=== PATIENT | male | born 1955 | race Caucasian/White ===

== ENCOUNTER 2017-07-26 13:55 | Outpatient (RCR) | payer BC, SELFPAY ==
[2017-07-26 14:33] VITALS: BP 156/71; PULSE 60; RESP 18; TEMP 36.8; O2SAT 98; BMI 36.6
[2017-07-26 14:33] LABS: Absolute Lymphocyte Count 1.13 X10^3/ul (0.83-4.51); Absolute Neutrophil Count 2.8 X10^3/uL (2.0-7.7); Basophil# 0.02 X10^3/uL; Basophil% 0.4 % (0-1); Eosinophil# 0.11 X10^3/uL; Eosinophils% 2.4 % (0-5); Hematocrit 35.8 % (40-54); Hemoglobin 12.3 g/dl (13.0-16.5); Lymphocyte # 1.13 X10^3/ul (4.0); Lymphocyte % 24.8 % (19-41); Mean Corp Hgb Conc 34.4 g/gl (32-36); Mean Corpuscular Hgb 31.1 pg (27.0-32.0); Mean Corpuscular Volume 90.6 fL (80-94); Mean Platelet Vol. 9.5 fl (6.2-12.0); Monocyte# 0.44 X10^3/uL; Monocyte% 9.6 % (0-10); Neutrophil # 2.84 X10^3/uL (2.7-7.7); Neutrophil % 62.4 % (47-70); Platelet Count 121 K/mm3 (150-450); RBC Distribution Width CV 12.3 % (11.6-14.6); RBC Distribution Width SD 39.9 fl (35.1-43.9); Red Blood Count 3.95 M/mm3 (4.6-6.2); White Blood Count 4.6 K/mm3 (4.4-11.0)
[2017-07-26 14:34] LABS: POSITIVE COUNT NO; POSITIVE DIFFERENTIAL NO; POSITIVE MORPHOLOGY NO
--- NOTE | 2017-07-26 15:01 | WMO.OV_ITS ---
Subjective - Date of Service Date of Service:: 07/26/17 - Chief Complaint F/u for chronic ITP. - History of Present Illness [id number].[id number].[email or web address] was diagnosed with Chronic ITP in 2003. He has never required therapy. Comes in for follow up. He feels well, denies bleeding. - Past Medical/Social History Social History Smoking Status Never smoker Review of Systems Constitutional:: Denies: Fever, Sweats, Weight loss, Appetite change, Chills Cardiovascular:: Denies: Chest pain, Palpitations, Dyspnea on exertion, Orthopnea, PND, Shortness of breath Respiratory: Denies: Cough, Hemoptysis, Shortness of Breath, Wheezing Gastrointestinal:: Denies: Abdominal pain, Nausea, Vomiting, Diarrhea, Constipation, Hematochezia Genitourinary: Denies: Dysuria, Hematuria, 15, Flank pain Musculoskeletal:: Denies: Back pain, Myalgia, Arthralgia Skin: Denies: Rash, Skin Changes, Wounds Neurological:: Denies: Headache, Dizziness, Visual changes, Tinnitus, Hearing loss Psychiatric: Denies: Anxiety, Depression, Homicidal Ideations, Suicidal Ideations Vital Signs Height 5 ft 11 in Weight: 119.295 kg Weight in Pounds 263.0 lbs Pulse Ox 98 Temperature 98.3 F Pulse Rate 60 Respiratory Rate 18 Blood Pressure 156/71 Blood Pressure Position Sitting - Physical Exam General: Alert, Oriented x3, No apparent distress HEENT: Atraumatic, PERRLA, EOMI, Normocephalic Oropharynx:: Dry mucosa Neck:: Supple, Trachea midline. Negative for: JVD, bilateral Cardiac:: Regular rate, Regular rhythm, Normal S1, Normal S2. Negative for: Murmur Lungs: Clear to auscultation, Excusion symmetrical. Negative for: Rhonchi, Wheezes Abdomen:: Bowel sounds x 4, Soft, Non-tender, Non-distended. Negative for: Hepatosplenomegaly Extremities:: Negative for: Cyanosis, Edema Neurological: Neuro grossly intact Skin:: Negative for: Lesions, Rash, Petechiae, Ecchymosis Psychiatric:: Appropriate affect, Euthymic Lymphatics:: Negative for: Cervical lymphadenopathy, Supraclavicular lymphadenopathy, Axillary lymphadenopathy Laboratory Data: Laboratory Tests 3 07/26/17 Range/Units 14:13 WBC 4.6 (4.4-11.0) K/mm3 RBC 3.95 L (4.6-6.2) M/mm3 Hgb 12.3 L (13.0-16.5) g/dl Hct 35.8 L (40-54) % MCV 90.6 (80-94) fL MCH 31.1 (27.0-32.0) pg MCHC 34.4 (32-36) g/gl RDW 12.3 (11.6-14.6) % RDW Differential 39.9 (35.1-43.9) fl Plt Count 121 L (150-450) K/mm3 MPV 9.5 (6.2-12.0) fl Immature Gran % (Auto) 0.400 (0.0-0.9) % Neut % (Auto) 62.4 (47-70) % Lymph % (Auto) 24.8 (19-41) % [place] % (Auto) 9.6 (0-10) % Eos % (Auto) 2.4 (0-5) % Baso % (Auto) 0.4 (0-1) % Absolute Neuts (auto) 2.8 (2.0-7.7) X10^3/uL Absolute Lymphs (auto) 1.13 (0.83-4.51) X10^3/ul Total Counted Not Reportable Assessment and Plan Chronic ITP. Clinically stable. Plt 121 today. Plan is to continue observation. Since he is stable, he will follow up PCP and call if new problems arise. RTC prn. Medications: Prescriptions This Visit Medication Instructions Recorded Aliskiren Hemifumarate [Tekturna] 150 mg PO DAILY 07/22/17 Allopurinol [Zyloprim] 100 mg PO DAILY 07/22/17 Atorvastatin Calcium [Lipitor] 10 mg PO DAILY 07/22/17 Doxazosin Mesylate [Cardura] 8 mg PO DAILY 07/22/17 Enalapril Maleate [Vasotec] 20 mg PO DAILY 07/22/17 Multivitamin [Multiple Vitamins] 1 each PO DAILY 07/22/17 Valsartan [Diovan] 160 mg PO DAILY 07/22/17 Verapamil HCl [Verelan] 360 mg PO DAILY 07/22/17 Primary Care Provider: Westley Bryan Referring Provider: - Problem List (1) Chronic ITP (idiopathic thrombocytopenia) Status: Chronic
[2017-07-26 22:14] LABS: Xtra Tube EP Lab EXTRA TUBE
== END 2017-08-26 16:20 | disposition home or self-care (01) ==
LOC: ONC 13:55
PROVIDERS: Family Provider Family Medicine; PCP Family Medicine; Visit Provider Internal Medicine Medical Oncology
DX: D69.3 Immune thrombocytopenic purpura (principal)
CPT/HCPCS: 36415; 85025

== ENCOUNTER → 2017-09-06 16:27 | Outpatient (CLI) | payer BC, SELFPAY ==
[2017-09-06 17:25] LABS: Albumin, Serum 3.9 g/dL (3.2-5.0); BUN 23 mg/dL (7-18); BUN/Creat Ratio 17.4 RATIO (10-20); Calcium,Total 8.9 mg/dL (8.5-10.1); Chloride 105 mmol/L (98-107); Creatinine, Serum 1.32 mg/dL (0.70-1.30); EST Glomerular Filtration Rate 58 mL/min (>60); Est Glom Filt Rate - Afr Amer 71 mL/min (>60); Glucose 83 mg/dL (74-106); Magnesium 1.8 mg/dL (1.6-2.6); Phosphorus 3.4 mg/dL (2.5-4.9); Potassium 4.5 mmol/L (3.5-5.1); Sodium Level 140 mmol/L (136-145); Uric Acid 5.7 mg/dL (3.5-7.2)
[2017-09-06 17:36] LABS: Vitamin D,25 Hydroxy 34.3 ng/mL (29.95-100.01)
[2017-09-06 18:04] LABS: Protein, Urine (Random) 10.5 mg/dL (<11.9); Protein:Creat Ratio 71 mg/g CRE (0-200)
== END ==
PROVIDERS: Family Provider Family Medicine; PCP Family Medicine; Visit Provider Internal Medicine Nephrology
DX: N18.3 Chronic kidney disease, stage 3 (moderate) (principal); E55.9 Vitamin D deficiency, unspecified; M10.9 Gout, unspecified
CPT/HCPCS: 36415; 80069; 82306; 82570; 83735; 84156; 84550

== ENCOUNTER → 2018-03-09 16:00 | Outpatient (CLI) | payer BC, SELFPAY ==
[2018-03-09 16:33] LABS: Glucose, Dipstick Normal (Normal); Ketone-Dipstick Negative (Negative); Leukocyte Esterase-Dipstick 25 /ul (Negative); Nitrite-Dipstick Negative (Negative); Occult Blood-Urine Negative /ul (Negative); Protein-Dipstick Negative (Negative); Urine Bilirubin Dipstick Negative (Negative); Urine Urobilinogen 1 mg/dl (Normal)
[2018-03-09 16:34] LABS: Color, Urine Yellow (Yellow); Hematocrit 36.1 % (40-54); Hemoglobin 12.2 g/dl (13.0-16.5); Mean Corp Hgb Conc 33.8 g/gl (32-36); Mean Corpuscular Hgb 31.6 pg (27.0-32.0); Mean Corpuscular Volume 93.5 fL (80-94); Mean Platelet Vol. 9.6 fl (6.2-12.0); Platelet Count 115 K/mm3 (150-450); RBC Distribution Width SD 39.8 fl (35.1-43.9); Red Blood Count 3.86 M/mm3 (4.6-6.2); Urine Clarity Sl Cldy (Clear)
[2018-03-09 16:41] LABS: Scan Indicated on CBC? Y/N NO
[2018-03-09 17:04] LABS: Protein, Urine (Random) < 6.0 mg/dL (<11.9); Protein:Creat Ratio 38 mg/g CRE (0-200)
[2018-03-09 17:20] LABS: Albumin, Serum 3.8 g/dL (3.2-5.0); BUN 18 mg/dL (7-18); BUN/Creat Ratio 13.4 RATIO (10-20); Calcium,Total 8.6 mg/dL (8.5-10.1); Chloride 105 mmol/L (98-107); Creatinine, Serum 1.34 mg/dL (0.70-1.30); EST Glomerular Filtration Rate 57 mL/min (>60); Est Glom Filt Rate - Afr Amer 69 mL/min (>60); Glucose 84 mg/dL (74-106); Phosphorus 3.4 mg/dL (2.5-4.9); Potassium 4.5 mmol/L (3.5-5.1); Sodium Level 141 mmol/L (136-145)
[2018-03-09 17:27] LABS: PTHIN 70.9 pg/mL (18.4-80.1)
[2018-03-09 17:29] LABS: Vitamin D,25 Hydroxy 33.6 ng/mL (29.95-100.01)
== END ==
PROVIDERS: Family Provider Family Medicine; PCP Family Medicine; Referring Provider Internal Medicine Nephrology; Visit Provider Internal Medicine Nephrology
DX: N18.3 Chronic kidney disease, stage 3 (moderate) (principal); E55.9 Vitamin D deficiency, unspecified
CPT/HCPCS: 36415; 80069; 81002; 82306; 82570; 83970; 84156; 85027

== ENCOUNTER → 2018-12-07 16:03 | Outpatient (CLI) | payer BC, SELFPAY ==
[2018-12-07 16:46] LABS: Hematocrit 36.3 % (40-54); Hemoglobin 12.3 g/dL (13.0-16.5); Mean Corp Hgb Conc 33.9 g/dL (32-36); Mean Corpuscular Hgb 31.5 pg (27.0-32.0); Mean Corpuscular Volume 92.8 fL (80-94); Mean Platelet Vol. 9.6 fl (6.2-12.0); Platelet Count 122 K/mm3 (150-450); RBC Distribution Width SD 40.3 fl (35.1-43.9); Red Blood Count 3.91 M/mm3 (4.6-6.2); White Blood Count 4.8 K/mm3 (4.4-11.0)
[2018-12-07 17:13] LABS: Albumin, Serum 3.8 g/dL (3.2-5.0); BUN 23 mg/dL (7-18); Calcium,Total 8.6 mg/dL (8.5-10.1); Chloride 107 mmol/L (98-107); Creatinine, Serum 1.53 mg/dL (0.70-1.30); EST Glomerular Filtration Rate 49 mL/min (>60); Est Glom Filt Rate - Afr Amer 59 mL/min (>60); Glucose 86 mg/dL (74-106); Phosphorus 3.3 mg/dL (2.5-4.9); Potassium 4.2 mmol/L (3.5-5.1); Sodium Level 142 mmol/L (136-145)
[2018-12-07 17:24] LABS: PTHIN 63.2 pg/mL (18.4-80.1); Vitamin D,25 Hydroxy 25.1 ng/mL (29.95-100.01)
[2018-12-07 17:31] LABS: Color, Urine Yellow (Yellow); Glucose, Dipstick Normal (Normal); Ketone-Dipstick Negative (Negative); Leukocyte Esterase-Dipstick Negative /ul (Negative); Nitrite-Dipstick Negative (Negative); Occult Blood-Urine Negative /ul (Negative); Protein-Dipstick Negative (Negative); Urine Bilirubin Dipstick Negative (Negative); Urine Clarity Clear (Clear)
[2018-12-07 18:52] LABS: Microalbumin,Random Urine 8.6 mg/L (NO RANGE EST.); Microalbumin:Creatinine Ratio 4.7 mg/g CRE (<30 mg/g CRE); Protein:Creat Ratio 70 mg/g CRE (0-200); Specific Gravity, Urine 1.005 (1.002-1.030); Urine Urobilinogen Normal (Normal); Urine pH 6.5 (5.0 - 8.0)
== END ==
PROVIDERS: Family Provider Family Medicine; PCP Family Medicine; Referring Provider Internal Medicine Nephrology; Visit Provider Internal Medicine Nephrology
DX: N18.3 Chronic kidney disease, stage 3 (moderate) (principal); E55.9 Vitamin D deficiency, unspecified; Z13.0 Encounter for screening for diseases of the blood and blood-forming organs and certain disorders involving the immune mechanism
CPT/HCPCS: 36415; 80069; 81002; 82043; 82306; 82570; 83970; 84156; 85027